=== PATIENT | male | born 2000 | race Caucasian/White ===

== ENCOUNTER 2023-11-08 22:37 | Emergency (ER) | payer OTHER ==
[~2023-11-08] VITALS: Ht 182.9 cm; Wt 88.9 kg
--- NOTE | 2023-11-08 22:50 | NUR ---
ERMD at bedside. MSE in progress.
[2023-11-08] MEDS ORDERED: LIDOCAINE 1%-EPI 1:100,000 20 ML VIAL ONE (22:57)
[2023-11-08] MEDS ORDERED: SODIUM BICARBONATE 4.2 % (NEUT) 5 ML VIAL ONE (22:57)
[2023-11-08] MEDS ORDERED: CEPH500T PO (23:20)
[2023-11-08] MEDS: CEphaleXIN 500 MG CAPSULE PO ONE (23:23)
[2023-11-08] MEDS: SODIUM BICARBONATE 4.2 % (NEUT) 5 ML VIAL TP ONE (23:23)
[2023-11-08] MEDS: LIDOCAINE 1%-EPI 1:100,000 20 ML VIAL IJ ONE (23:23)
[2023-11-08] MEDS ORDERED: CEphaleXIN 500 MG CAPSULE ONE (23:24)
[2023-11-08] MEDS ORDERED: TDAP DIPH,PERTUSS,TET VAC/PF 0.5 ML DISP.SYRIN IM ONE (23:25)
[2023-11-08] MEDS: TDAP DIPH,PERTUSS,TET VAC/PF 0.5 ML DISP.SYRIN IM ONE (23:32)
--- NOTE | 2023-11-08 23:33 | NUR ---
Administered medication as prescribed. Assisted patient into comfortable position. safety and comfort measures in place.
[2023-11-08 23:36] VITALS: BP 130/80; TEMP 98.1; O2SAT 98
--- NOTE | 2023-11-08 23:36 | NUR ---
Patient discharged to home in stable condition. Written and verbal after care instructions given. Patient verbalizes understanding of instructions. Stressed follow up or return to ER for worsening s/s. Patient left ER with steady gait.
== END 2023-11-09 01:43 | disposition home or self-care (01) ==
LOC: ER 22:39
DX: S61.012A Laceration without foreign body of left thumb without damage to nail, initial encounter (principal); W26.8XXA Contact with other sharp object(s), not elsewhere classified, initial encounter; Y93.89 Activity, other specified; Y92.89 Other specified places as the place of occurrence of the external cause; Y99.8 Other external cause status
CPT/HCPCS: 99283; 90715; 90471; J3490 ×2; A4606; A4663